=== PATIENT | male | born 1975 | race Two or more races ===

== ENCOUNTER 2017-06-03 01:18 | Emergency (ER) ==
[2017-06-03 01:30] VITALS: BP 129/85; TEMP 98.7; BMI 24.5
--- NOTE | 2017-06-03 02:05 | ED.PDOC ---
General ED Provider: Dr. ALBERTO CORRIGAN Chief Complaint: Chest Wall Injury/Pain Stated Complaint: Patient is a 42 year old female who comes to the ER with chest wall pain. He reports that he slipped on ice 3 days ago, was carrying a large lorene that landed on the left side of his chest. Since then he has pain to left chest and rib area. Pain is worse with cough, breathing, or move Time Seen by Physician: 02:02 Mode of Arrival: Walk-In Information Source: Patient Exam Limitations: No limitations Seen Within Last 72 Hours for Same Complaint By: ED Nursing and Triage Documentation Reviewed and Agree: Yes Reviewed sepsis parameters & appropriate labs ordered?: No System Inflammatory Response Syndrome: Not Applicable Sepsis Protocol: For patient's 13 years and over: Temp is 96.8 and below OR 101 and greater Pulse >90 BPM Resp >20/minute Acutely Altered Mental Status Are patient's symptoms suggestive of a new infection, such as: -Pneumonia -Skin, Soft Tissue -Endocarditis -UTI -Bone, Joint Infection -Implantable Device -Acute Abdominal Infection -Wound Infection -Meningitis -Blood Stream Catheter Infection -Unknown System Inflammatory Response Syndrome: Not Applicable Musculoskeletal Complaint Exam - Back Pain Complaint/Exam Mechanism of Injury: Reports: No known trauma Onset/Duration: 3 days Symptoms Are: Still present Timing: Constant Initial Severity: Moderate Current Severity: Severe Location: Reports: Discrete Character: Reports: Aching, Throbbing Aggravating: Reports: Movements, Bending, Cough Alleviating: Reports: None Associated Signs and Symptoms: Denies: Swelling, Redness, Bruising, Fever, Weakness, Numbness, Tingling, Abdominal pain, Flank pain, Bladder incontinence, Bowel incontinence, Weight loss, Pain with weight bearing TAD Risk Factors: Reports: None AAA Risk Factors: Reports: None Cauda Equina Risk Factors: Reports: None Epidural Abcess Risk Factors: Reports: None Related Surgical History: Reports: None Focal Tenderness: Yes (Left lateral chest wall ) Paraspinal Muscle Tenderness: No Paraspinal Muscle Spasm: No Scoliosis: No Lordosis: No Kyphosis: No SLR Test: Right Negative, Left Negative Hip Motion Testing Pain: Right Negative, Left Negative Focal Weakness: Present: None Focal Sensory Loss: Present: None Gait: Present: Normal Back Picture: 1 - Tenderness to palpation 2 - Tenderness Differential Diagnoses: Fracture, Strain, Sprain Review of Systems - Review Of Systems Constitutional: Reports: No symptoms Eyes: Reports: No symptoms Ears, Nose, Mouth, Throat: Reports: No symptoms Respiratory: Reports: No symptoms Cardiac: Reports: Chest pain (left lateal ) GI: Reports: No symptoms : Reports: No symptoms Musculoskeletal: Reports: No symptoms Skin: Reports: No symptoms Neurological: Reports: Anxiety Endocrine: Reports: No symptoms Hematologic/Lymphatic: Reports: No symptoms All Other Systems: Reviewed and Negative Past Medical History - Past Medical History Previously Healthy: Yes Endocrine: Reports: None Cardiovascular: Reports: None Respiratory: Reports: None Hematological: Reports: None Gastrointestinal: Reports: None Genitourinary: Reports: None Neuro/Psych: Reports: None Musculoskeletal: Reports: None Cancer: Reports: None - Surgical History General Surgical History: Reports: None - Family History Family History: Reports: None - Social History Smoking Status: Never smoker Hx Substance Use: No Alcohol Screening: None - Immunizations Tetanus Shot up to Date: No Physical Exam - Physical Exam Appearance: Ill-appearing Ill-appearing: Mild Pain Distress: Severe Neck: Supple Respiratory: Airway patent, Breath sounds clear, Breath sounds equal, Respirations nonlabored Cardiovascular: RRR, Pulses normal, No rub, No murmur Musculoskeletal: Normal strength, ROM intact, No edema, No calf tenderness Skin: Warm, Dry Neurological: Sensation intact, Alert, Oriented Psychiatric: Anxious Interpretation - Radiology Interpretation Radiology Interpretation By: ED Physician Radiology Results: Positive Exam Interpreted: CXR (5th rib Fracture with mild displacement. ) Critical Care Note - Critical Care Note Total Time (mins): 0 Course - Course Orders, Labs, Meds: Orders Category Date Time Status Ed After Hour Supply Med [Ed After Hours Supply Med MEDS 06/03/17 02:06 Discontinued Sent Home] 1 each PO ONCE ONE Hydrocodone Bit/Acetaminophen [[place] 5-325] MEDS 06/03/17 02:14 Discontinued 2 tab .ROUTE .STK-MED ONE Ketorolac Tromethamine [Toradol] MEDS 06/03/17 02:06 Discontinued 60 mg IM ONCE STA RIBS, W/PA CHEST LEFT Stat RADS 06/03/17 01:59 Completed Medications Discontinued Medications Generic Name Dose Route Start Last Admin Trade Name Freq PRN Reason Stop Dose Admin Ketorolac Tromethamine 60 mg 06/03/17 02:06 06/03/17 02:26 Toradol IM 06/03/17 02:07 60 mg ONCE STA Administration Miscellaneous Information 1 each 06/03/17 02:06 Ed After Hours Supply Med Sent Home PO 06/03/17 02:07 ONCE ONE Protocol Vital Signs: Temp Pulse Resp BP Pulse Ox 06/03/17 01:20 98.7 F 89 18 129/85 98 Departure - Departure Time of Disposition: 02:15 Disposition: HOME SELF-CARE Discharge Problem: Chest wall pain, Chest injury Closed rib fracture Qualifiers: Encounter type: initial encounter Rib fracture type: single rib Laterality: left Qualified Code(s): S22.32XA - Fracture of one rib, left side, initial encounter for closed fracture Instructions: Rib Fracture (ED), Chest Wall Pain (ED) Condition: Fair Pt referred to PMD for follow-up: Yes IPMP verified?: No Additional Instructions: Take Medications as prescribed Follow up with PCP in 3 dsyas . Prescriptions: Hydrocodone/Acetaminophen [[place] 5-325 Tablet] 1 tab PO Q6HR PRN #12 tablet PRN Reason: PAIN Ibuprofen [Motrin] 600 mg PO Q6H PRN #30 tablet PRN Reason: Analgesia Allergies/Adverse Reactions: Allergies No Known Allergies Allergy (Verified 06/03/17 01:31) Home Medications: Ambulatory Orders Hydrocodone/Acetaminophen [[place] 5-325 Tablet] 1 tab PO Q6HR PRN #12 tablet Ibuprofen [Motrin] 600 mg PO Q6H PRN #30 tablet 06/03/17 Disposition Discussed With: Patient
[2017-06-03] MEDS ORDERED: TORADOL IM STA (02:06)
[2017-06-03] MEDS ORDERED: ED AFTER HOURS SUPPLY MED SENT HOME PO ONE (02:06)
[2017-06-03] MEDS ORDERED: NORCO 5-325 ONE (02:14)
--- NOTE | 2017-06-03 03:07 | DI ---
EXAM: PA chest and left rib series. HISTORY: Trauma. FINDINGS: There is a displaced fracture of the left lateral fifth rib. The cardiac silhouette and pu lmonary vasculature are within normal limits. The costophrenic angles are clear. No infiltrate or c onsolidation. No pneumothorax. Impression: Displaced fracture of the left lateral fifth rib.
== END 2017-06-03 02:50 | disposition home or self-care (01) ==
LOC: ED 01:18
DX: S22.32XA Fracture of one rib, left side, initial encounter for closed fracture (principal); W00.0XXA Fall on same level due to ice and snow, initial encounter
CPT/HCPCS: 99282

== ENCOUNTER 2024-10-02 22:44 | Observation (INO) ==
--- NOTE | 2024-10-02 23:21 | ED.PDOC ---
General [facility] ED Provider: Dr. ABBIE ARZOLA DO Chief Complaint: Respiratory Complaint Stated Complaint: 49-year-old male mostly Nepalese-speaking presenting with complaints of cough. Patient reports to me that he has had cough ongoing since 3:00 today. He states that he had cough that was dry and now caused him to vomit. He is present with his daughter. 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 He reports taking Tylenol at 4:00. No other medications. Blood sugar upon arrival was measured at 300. Patient does have documented hemoglobin A1c of greater than 12 over 2 years ago. He reports that he has not followed up with any doctor since then. He does state mild tinnitus of his left ear. Denies any sick contacts. Denies abdominal pain diarrhea or constipation Time Seen by Provider: 10/02/24 23:06 Information Source: Patient and Family Nursing and Triage Documentation Reviewed and Agree: Yes Opioid Naive vs. Tolerant What is Opioid Naive?: *Opioid Naive implies the patient is not already taking opioids or not chronically receiving opioids on a daily basis. *PRN dosing is not "usually" associated with tolerance. *Patients are at higher risk of over-sedation and aspiration. What is Opioid Tolerant?: *Opioid Tolerance implies less than the expected response to an opioid. *Acquired tolerance is defined by the patient taking 60mg of oral morphine daily (or equianalgesic dose of another opioid) for 1 week or more. *Often associated with chronic pain. *May take more than usual dose to achieve desired pain control. Cardiovascular Complaint Exam Chest Pain Complaint/Exam Differential Diagnoses: Pulmonary Edema, Lower Resp. Infection and Pulmonary Embolism Review of Systems Review Of Systems Constitutional: Reports Fever Ears, Nose, Mouth, Throat: Denies Ear discharge Respiratory: Reports Cough Cardiac: Reports Chest pain GI: Reports Vomiting; Denies Abdomen distended : Denies Burning Musculoskeletal: Denies Back pain Skin: Denies Bruising Neurological: Denies Headache [facility] Social History Smoking and tobacco status: Never smoker Passive smoking exposure: No Alcohol intake: never Substance use type: does not use Physical Exam Physical Exam Appearance: Reports Well-nourished Eyes: Reports ANDRES, EOMI and Conjunctiva clear ENT: Reports Ears normal, Nose normal and Oropharynx normal Neck: Supple Respiratory: Reports Airway patent, Breath sounds clear and Other (Dry cough); Denies Retractions Cardiovascular: Reports RRR and Pulses normal GI/: Reports Soft, Nontender and Bowel sounds normal Musculoskeletal: Reports Normal strength and No edema Skin: Reports Warm and Dry Neurological: Reports Sensation intact, Motor intact, Alert and Oriented Psychiatric: Reports Affect appropriate Interpretation EKG Interpretation EKG Interpretation By: ED Physician Time of EKG #1: 23:31 Rate: Normal Rhythm: Sinus Ectopy: None [place]: NL ST Segment: Normal Interpretation: No ischemic change QTc 427 Physician Progress Note Physician Progress Note: Patient is a 49-year-old male presenting for history of present illness above. Patient does have dry cough. Will send for flu COVID. Initial blood sugar was 300 upon arrival. Patient has known history of diabetes untreated. Will send new hemoglobin A1c. Will provide liter fluid. Labs will be obtained. In regards to his cough this is dry in nature and lungs appear clear. He is PERC negative. Patient became tachycardic after breathing treatment. He did have 1 episode of emesis here in the emergency department. Chest x-ray was positive for pneumonia. Started on antibiotics. Will bring in for observation given his vomiting and uncontrolled blood sugars. Has urine does show ketones as well as a decreased bicarbonate however his pH is normal. Will provide 2 L of fluid before giving any insulin. Blood sugar decreased after first liter to 259. No abdominal pain or discomfort on evaluation to suggest GI involvement or need for CT scan. Case discussed with hospitalist service in agreement to place patient in observation. Course Course 10/02/24 23:25 10/02/24 23:25 Orders, Labs, Meds: Lab Review 10/02/24 10/02/24 10/02/24 23:00 23:25 23:35 WBC 9.08 RBC 4.58 L Hgb 13.6 L Hct 39.8 L MCV 86.9 MCH 29.7 MCHC 34.2 RDW Coeff of Tanvir 11.9 Plt Count 210 Immature Gran % (Auto) 0.2 Neut % (Auto) 78.2 H Lymph % (Auto) 10.5 Irwin % (Auto) 9.7 Eos % (Auto) 1.1 Baso % (Auto) 0.3 Neut # (Auto) 7.1 H Lymph # (Auto) 1.0 Irwin # (Auto) 0.9 Eos # (Auto) 0.1 Baso # (Auto) 0.0 Immature Gran # (Auto) 0.0 VBG pH VBG pCO2 VBG pO2 VBG HCO3 VBG O2 Saturation Sodium 135.0 Potassium 3.82 Chloride 101.7 Carbon Dioxide 20.0 L Anion Gap 17.12 BUN 18.7 Creatinine 0.51 L Estimated GFR (MDRD) 173.00 BUN/Creatinine Ratio 36.66 Glucose 341.6 H Hemoglobin A1c 11.05 H Lactic Acid 1.57 Calcium 8.79 Magnesium 1.77 Total Bilirubin 0.65 AST 37.1 ALT 28.1 Alkaline Phosphatase 126.9 H Troponin I < 0.012 NT-Pro-B Natriuret Pep 37 Total Protein 7.39 Albumin 4.04 Globulin 3.35 Albumin/Globulin Ratio 1.20 Lipase 34.7 Urine Color Yellow Urine Clarity Clear Urine pH 6.0 Ur Specific [place] 1.010 Urine Protein Negative Urine Glucose (UA) 3+ H Urine Ketones 2+ H Urine Blood 1+ H Urine Nitrite Negative Urine Bilirubin Negative Urine Urobilinogen 4.0 H Ur Leukocyte Esterase Negative Urine Microscopic RBC 5-10 Ur Squamous Epith Cells Not present Influ A Molecular Assay Negative by naat Influ B Molecular Assay Negative by naat SARS CoV-2 RNA Rapid JOSELIN Negative 10/02/24 23:58 WBC RBC Hgb Hct MCV MCH MCHC RDW Coeff of Tanvir Plt Count Immature Gran % (Auto) Neut % (Auto) Lymph % (Auto) Irwin % (Auto) Eos % (Auto) Baso % (Auto) Neut # (Auto) Lymph # (Auto) Irwin # (Auto) Eos # (Auto) Baso # (Auto) Immature Gran # (Auto) VBG pH 7.39 VBG pCO2 38 L VBG pO2 42 VBG HCO3 21.8 L VBG O2 Saturation 78.9 Sodium Potassium Chloride Carbon Dioxide Anion Gap BUN Creatinine Estimated GFR (MDRD) BUN/Creatinine Ratio Glucose Hemoglobin A1c Lactic Acid Calcium Magnesium Total Bilirubin AST ALT Alkaline Phosphatase Troponin I NT-Pro-B Natriuret Pep Total Protein Albumin Globulin Albumin/Globulin Ratio Lipase Urine Color Urine Clarity Urine pH Ur Specific [place] Urine Protein Urine Glucose (UA) Urine Ketones Urine Blood Urine Nitrite Urine Bilirubin Urine Urobilinogen Ur Leukocyte Esterase Urine Microscopic RBC Ur Squamous Epith Cells Influ A Molecular Assay Influ B Molecular Assay SARS CoV-2 RNA Rapid JOSELIN Orders Category Date Time Status PL[facility] 10/03/24 01:06 Active ) EKG-(ED ONLY) Stat CARDIO 10/02/24 23:19 Completed NEBULIZER TREATMENT Stat CARDIO 10/02/24 23:22 Completed BLOOD GLUCOSE MONITORING (MED/SURG) Q4HR CARE 10/03/24 01:06 Active BLOOD GLUCOSE MONITORING ONCE CARE 10/02/24 23:34 Active TELEMETRY MONITORING TELE CARE 10/03/24 01:06 Active VITAL SIGNS Q4HR CARE 10/03/24 01:06 Active REGULAR DIET DIETARY 10/03/24 Breakfast Ordered ED APPLY O2 .ONCE EMERGENCY 10/02/24 23:19 Active ED KNEE BOLTER APPLIED .ONCE EMERGENCY 10/02/24 23:19 Active CBC W/ AUTO DIFF Stat LAB 10/02/24 23:25 Completed CBC W/ AUTO DIFF Timed LAB 10/03/24 06:00 Ordered COMPREHENSIVE METABOLIC PANEL Stat LAB 10/02/24 23:25 Completed COMPREHENSIVE METABOLIC PANEL Timed LAB 10/03/24 06:00 Ordered COVID [SARS COV-2 RNA RAPID JOSELIN] Stat LAB 10/03/24 Uncollected FLU A/B MOLECULAR Stat LAB 10/02/24 23:00 Completed HEMOGLOBIN A1C Stat LAB 10/02/24 23:25 Completed LACTIC ACID Stat LAB 10/02/24 23:25 Completed LIPASE Stat LAB 10/03/24 00:04 Completed MAGNESIUM Stat LAB 10/02/24 23:35 Completed NT-PROBNP(ED) Stat LAB 10/02/24 23:25 Completed SARS COV-2 RNA RAPID JOSELIN Stat LAB 10/02/24 23:00 Completed TROPONIN I Stat LAB 10/02/24 23:25 Completed URINALYSIS C & S IF INDICATED Stat LAB 10/02/24 23:00 Completed VENOUS BLOOD GAS Stat LAB 10/02/24 23:58 Completed Acetaminophen [Tylenol] Meds 10/03/24 01:06 Active 650 mg PO Q4H PRN Azithromycin [Zithromax] Meds 10/03/24 00:52 Discontinued 500 mg PO ONCE ONE Ceftriaxone 1 gm Vial [Rocephin 1 gm Vial] Meds 10/03/24 00:50 Discontinued 1 gm IVP ONCE ONE Ipratropium/Albuterol Neb [Duoneb] Meds 10/02/24 23:22 Discontinued 3 ml NEB ONCE STA Ondansetron HCl/Pf [Zofran Sdv] Meds 10/03/24 00:54 Discontinued 4 mg IVP ONCE STA Sodium Chloride 0.9% [Sodium Chloride] 1,000 ml Meds 10/02/24 23:22 Discontinued IV BOLUS Sodium Chloride 0.9% [Sodium Chloride] 1,000 ml Meds 10/03/24 00:26 Discontinued IV BOLUS RESUSCITATION STATUS Routine OTHERS 10/03/24 01:06 Ordered CHEST, 2 VIEWS PA & LAT Stat RADS 10/02/24 23:19 Completed Medications Generic Name Dose Route Start Last Admin Trade Name Freq PRN Reason Stop Dose Admin Acetaminophen 650 mg 10/03/24 01:06 10/03/24 01:19 Acetaminophen 325 Mg Tablet PO 650 mg Q4H PRN Administration Mild Pain Discontinued Medications Generic Name Dose Route Start Last Admin Trade Name Freq PRN Reason Stop Dose Admin Albuterol/Ipratropium 3 ml 10/02/24 23:22 10/02/24 23:45 Ipratropium/Albuterol Vial.Neb NEB 10/02/24 23:23 3 ml ONCE STA Administration Azithromycin 500 mg 10/03/24 00:52 10/03/24 00:59 Azithromycin 250 Mg Tablet PO 10/03/24 00:53 500 mg ONCE ONE Administration Ceftriaxone Sodium 1 gm 10/03/24 00:50 10/03/24 00:59 Ceftriaxone 1 Gm Vial IVP 10/03/24 00:51 1 gm ONCE ONE Administration Sodium Chloride 1,000 mls @ 1,000 mls/hr 10/02/24 23:22 10/03/24 00:28 Sodium Chloride IV 10/03/24 00:21 Infused BOLUS ONE Infusion Sodium Chloride 1,000 mls @ 1,000 mls/hr 10/03/24 00:26 10/03/24 01:27 Sodium Chloride IV 10/03/24 01:25 Infused BOLUS ONE Infusion Ondansetron HCl 4 mg 10/03/24 00:54 10/03/24 00:59 Ondansetron Hcl/Pf 4 Mg/2 Ml Sdv IVP 10/03/24 00:55 4 mg ONCE STA Administration EXAM: FRONTAL AND LATERAL VIEWS OF THE CHEST. HISTORY: Cough. COMPARISON: Chest radiograph 06/03/2017. FINDINGS: Normal heart size. Subtle groundglass opacities in the left mid to lower lung. No pleural effusion or pneumothorax. No acute osseous abnormality. IMPRESSION: Subtle infiltrates in the left lung concerning for pneumonia. Electronically Signed By: Brien Farnsworth M.D. Signing Date: 2024-10-03 00:39 Vital Signs: Temp Pulse Resp BP Pulse Ox O2 Flow Rate 10/02/24 23:47 2 10/02/24 22:46 98.7 F 99 26 H 140/86 99 JESSIKA Risk Score JESSIKA Risk Score: Risk Score Odds of by 30D 0 0.1 (0.1-0.2) 1 0.3 (0.2-0.3) 2 0.4 (0.3-0.5) 3 0.7 (0.6-0.9) 4 1.2 (1.0-1.5) 5 2.2 (1.9-2.6) 6 3.0 (2.5-3.6) 7 4.8 (3.8-6.1) Discharge Plan Discharge Patient Disposition: PLACED OBSERVATION Discharge Problem: Pneumonia, Diabetes mellitus due to underlying condition, uncontrolled, with hyperglycemia, Vomiting Did you review [place] [employer] for ALL controlled substances?: Not Applicable ED Provider: ABBIE ARZOLA Condition: Stable
[2024-10-02] MEDS: SODIUM CHLORIDE 1,000 ML IV ONE (23:26)
[2024-10-02 23:30] LABS: BASOPHILS % (AUTO) 0.3 % (0.0-3.0); EOSINOPHILS # (AUTO) 0.1 K/ul (0.0-0.7); EOSINOPHILS % (AUTO) 1.1 % (0.0-7.0); HEMATOCRIT 39.8 % (42.0-52.0); HEMOGLOBIN 13.6 g/dl (14.0-18.0); IMMATURE GRANULOCYTE % (AUTO) 0.2 % (0.0-5.0); LYMPHOCYTES % (AUTO) 10.5 (10.0-50.0); MEAN CORPUSCULAR HEMOGLOBIN 29.7 pg (27.0-31.0); MEAN CORPUSCULAR HGB CONC 34.2 (31.8-35.4); MEAN CORPUSCULAR VOLUME 86.9 fl (80.0-94.0); MONOCYTES # (AUTO) 0.9 K/uL (0.4-2.0); MONOCYTES % (AUTO) 9.7 (0-10); NEUTROPHILS # (AUTO) 7.1 K/ul (2.0-6.9); NEUTROPHILS % (AUTO) 78.2 % (42.2-75.2); PLATELET COUNT 210 10^3/uL (140-440); RDW COEFFICIENT OF VARIATION 11.9 % (11.6-14.8); RED BLOOD COUNT 4.58 10^6/ul (4.70-6.10); WHITE BLOOD COUNT 9.08 K/ul (4.2-10.2)
[2024-10-02 23:33] LABS: BILIRUBIN,URINE Negative (NEGATIVE); CLARITY,URINE Clear (CLEAR); COLOR,URINE Yellow (YELLOW); KETONES,URINE 2+ (NEGATIVE); LEUKOCYTE ESTERASE ,URINE Negative (NEGATIVE); NITRITE,URINE Negative (NEGATIVE); PROTEIN,URINE Negative (NEGATIVE); URINE, BLOOD 1+ (NEGATIVE)
[2024-10-02 23:39] LABS: GLUCOSE, URINE (UA) 3+ (NEGATIVE); SQUAMOUS EPITHELIAL CELL,UR NOT PRESENT (0-5)
[2024-10-02 23:43] LABS: ALANINE AMINOTRANSFERASE 28.1 U/L (0-50); ALBUMIN 4.04 g/dL (3.5-5.0); ALKALINE PHOSPHATASE 126.9 U/L (38-126); ASPARTATE AMINO TRANSFERASE 37.1 U/L (17-59); BILIRUBIN,TOTAL 0.65 mg/dL (0.2-1.3); BLOOD UREA NITROGEN 18.7 mg/dL (9-20); CALCIUM 8.79 mg/dL (8.4-10.2); CHLORIDE 101.7 mmol/L (98-107); CREATININE 0.51 mg/dL (0.60-1.10); GLUCOSE 341.6 mg/dL (74-106); POTASSIUM 3.82 mmol/L (3.5-5.1); TOTAL PROTEIN 7.39 g/dL (6.3-8.2)
[2024-10-02] MEDS: DUONEB NEB STA (23:45)
[2024-10-02 23:47] LABS: MOLECULAR FLU A NEGATIVE BY NAAT (NEGATIVE); MOLECULAR FLU B NEGATIVE BY NAAT (NEGATIVE); SARS COV-2 RNA RAPID NAAT NEGATIVE (NEGATIVE)
[2024-10-02 23:59] LABS: TROPONIN I < 0.012 ng/ml (0.0000-0.120)
[2024-10-03 00:16] LABS: VBG HCO3 21.8 (22-26); VBG PH 7.39 (7.30-7.40)
[2024-10-03 00:17] LABS: VBG OXYGEN SATURATION 78.9 (60-80)
[2024-10-03] MEDS: SODIUM CHLORIDE 1,000 ML IV ONE (00:34)
--- NOTE | 2024-10-03 00:43 | DI ---
EXAM: FRONTAL AND LATERAL VIEWS OF THE CHEST. HISTORY: Cough. COMPARISON: Chest radiograph 06/03/2017. FINDINGS: Normal heart size. Subtle groundglass opacities in the left mid to lower lung. No pleural effusion or pneumothorax. No acute osseous abnormality. IMPRESSION: Subtle infiltrates in the left lung concerning for pneumonia.
[2024-10-03] MEDS: ROCEPHIN 1 GM VIAL IVP ONE (00:59)
[2024-10-03] MEDS: ZITHROMAX PO ONE (00:59)
[2024-10-03] MEDS: ZOFRAN SDV IVP STA (00:59)
[2024-10-03] MEDS: TYLENOL PO PRN (01:19)
[2024-10-03 03:12] VITALS: BMI 25.0
[2024-10-03] MEDS ORDERED: REGLAN IVP PRN (03:41)
[2024-10-03] MEDS: ZOFRAN SDV IVP PRN (03:50)
[2024-10-03] MEDS: HUMULIN R (10ML) SUBCUT PRN (04:05)
[2024-10-03 05:59] LABS: BASOPHILS % (AUTO) 0.2 % (0.0-3.0); EOSINOPHILS % (AUTO) 0.2 % (0.0-7.0); HEMATOCRIT 36.1 % (42.0-52.0); HEMOGLOBIN 12.3 g/dl (14.0-18.0); IMMATURE GRANULOCYTE % (AUTO) 0.2 % (0.0-5.0); LYMPHOCYTES % (AUTO) 9.9 (10.0-50.0); MEAN CORPUSCULAR HEMOGLOBIN 29.9 pg (27.0-31.0); MEAN CORPUSCULAR HGB CONC 34.1 (31.8-35.4); MEAN CORPUSCULAR VOLUME 87.6 fl (80.0-94.0); MONOCYTES # (AUTO) 0.7 K/uL (0.4-2.0); MONOCYTES % (AUTO) 6.5 (0-10); NEUTROPHILS # (AUTO) 8.3 K/ul (2.0-6.9); PLATELET COUNT 211 10^3/uL (140-440); RDW COEFFICIENT OF VARIATION 11.9 % (11.6-14.8); RED BLOOD COUNT 4.12 10^6/ul (4.70-6.10); WHITE BLOOD COUNT 10.04 K/ul (4.2-10.2)
[2024-10-03 06:10] LABS: ALANINE AMINOTRANSFERASE 25.7 U/L (0-50); ALBUMIN 3.54 g/dL (3.5-5.0); ALKALINE PHOSPHATASE 97.7 U/L (38-126); ASPARTATE AMINO TRANSFERASE 30.4 U/L (17-59); BILIRUBIN,TOTAL 0.57 mg/dL (0.2-1.3); BLOOD UREA NITROGEN 14.9 mg/dL (9-20); CALCIUM 8.14 mg/dL (8.4-10.2); CARBON DIOXIDE 18.5 mmol/L (22-30.0); CHLORIDE 104.9 mmol/L (98-107); CREATININE 0.47 mg/dL (0.60-1.10); GLUCOSE 284.4 mg/dL (74-106); POTASSIUM 3.7 mmol/L (3.5-5.1); SODIUM 136.5 mmol/L (134.5-145); TOTAL PROTEIN 6.61 g/dL (6.3-8.2)
[2024-10-03 08:48] LABS: ALANINE AMINOTRANSFERASE 25.1 U/L (0-50); ALBUMIN 3.51 g/dL (3.5-5.0); ALKALINE PHOSPHATASE 93.1 U/L (38-126); ASPARTATE AMINO TRANSFERASE 31.3 U/L (17-59); BILIRUBIN,TOTAL 0.52 mg/dL (0.2-1.3); CALCIUM 8.27 mg/dL (8.4-10.2); CARBON DIOXIDE 20.8 mmol/L (22-30.0); CHLORIDE 105.2 mmol/L (98-107); CHOLESTEROL 165.6 mg/dL (0-200); CREATININE 0.48 mg/dL (0.60-1.10); GLUCOSE 212.6 mg/dL (74-106); HDL CHOLESTEROL 31.8 mg/dL (35-60); POTASSIUM 3.62 mmol/L (3.5-5.1); SODIUM 137.7 mmol/L (134.5-145); TOTAL PROTEIN 6.61 g/dL (6.3-8.2); TRIGLYCERIDES 89.7 mg/dL (0-150)
[2024-10-03] MEDS: PEPCID IVP SCH (09:21)
[2024-10-03] MEDS: PROTONIX IVP SCH (09:21)
[2024-10-03] MEDS ORDERED: TESSALON PERLES PO PRN (10:39)
--- NOTE | 2024-10-03 14:08 | PCM ---
Date of Service Date Seen by Provider: 10/03/24 Time Seen by Provider: 08:30 Admit Day/Time Admission Date: 10/03/24 Admission Time: 01:06 Reason for Admission Chief Complaint: RESPIRATORY COMPLAINT, DIZZY, WEAK Hospital Provider Hospital Provider: Ashlee Gr PA-C, [facility] History of Present Illness History of Present Illness: Patient is a 49-year-old male with past medical history of uncontrolled diabetes who presents to the ER with cough, fever, overall not feeling well. In the ER he was found to have a left lung pneumonia. He also started vomiting while in the ER. He was also noted to have a glucose in the 500s and A1c was added on and it was 11. Patient was given Rocephin and azithromycin and admitted to [facility]. Spoke extensively with the patient and his at the bedside today with a liquor clerk using [employer]. He states he feels somewhat better from a pneumonia standpoint. However during conversation he started having a coughing fit to the point that he threw up. He states he had only felt bad for couple days. He is on room air. He appears clammy and diaphoretic. Regarding his diabetes he states that he was told he was diabetic in 2020. He was started on metformin but he did not like the way it made him feel, and he only took it for couple days. His has concerns about his sugars running so high. When asked what he eats at home he states "everything". We discussed how high his sugars been running with his A1c being 11. He currently does not have any insurance and is self-pay. Therefore he does not have any PCP and it costs $150 to be seen in the clinic which they cannot afford at this time. He has a lot of social barriers to his access to health care at this time. Case Discussed With Case Discussed With: Patient's case was discussed with the ER Physicians, Dr. Simon. [facility] Social History Smoking and tobacco status: Never smoker Passive smoking exposure: No Alcohol intake: never Substance use type: does not use Allergies Allergies Allergy/AdvReac Type Severity Reaction Status Date / Time No Known Allergies Allergy Verified 10/02/24 23:02 Current Medications Home Medications Acetaminophen (Acetaminophen 325 Mg Tablet) 650 mg PO Q4H PRN PRN Reason: Mild Pain Last Admin: 10/03/24 10:34 Dose: 650 mg Azithromycin (Azithromycin 250 Mg Tablet) 500 mg PO BEDTIME [facility] Stop: 10/04/24 22:59 Benzonatate (Benzonatate 100 Mg Capsule) 100 mg PO TID PRN PRN Reason: Cough Famotidine (Famotidine Inj 20 Mg/2 Ml Vial) 20 mg IVP Q12HR [facility] Last Admin: 10/03/24 09:21 Dose: 20 mg Guaifenesin/Dextromethorphan (Guaifenesin/Dextromethorphan 200/20 Mg/10 Ml Cup) 10 ml PO Q6HR PRN PRN Reason: Cough CEFTRIAXONE/D5W 1 GM PREMIX (Rocephin 1 Gm/50 Ml D5w) 1 gm in 50 mls @ 100 mls/ hr IV BEDTIME PAULINE Stop: 10/06/24 20:59 Insulin Human Regular (Insulin Regular, Human 100 Unit/Ml (10ml) Vial) 0 unit SUBCUT PRN PRN; Protocol PRN Reason: Hyperglycemia Last Admin: 10/03/24 12:07 Dose: 2 unit Metoclopramide HCl (Metoclopramide Hcl 10 Mg/2 Ml) 5 mg IVP Q6HR PRN PRN Reason: Nausea / Vomiting Ondansetron HCl (Ondansetron Hcl/Pf 4 Mg/2 Ml Sdv) 4 mg IVP Q6H PRN PRN Reason: Nausea / Vomiting Last Admin: 10/03/24 03:50 Dose: 4 mg Pantoprazole Sodium (Pantoprazole Sodium 40 Mg Vial) 40 mg IVP DAILY [facility] Last Admin: 10/03/24 09:21 Dose: 40 mg indomethacin 50 mg capsule 50 mg PO TID #21 caps 11/14/21 [Rx Confirmed 10/02/24] metformin 500 mg tablet 1,000 mg (2 x 500 mg) PO BID #60 tabs 11/22/21 [Rx Confirmed 10/02/24] Opioid Naive vs. Tolerant Does Patient Take Opioids?: No Is Patient Opioid Naive?: Yes What is Opioid Naive?: *Opioid Naive implies the patient is not already taking opioids or not chronically receiving opioids on a daily basis. *PRN dosing is not "usually" associated with tolerance. *Patients are at higher risk of over-sedation and aspiration. Is Patient Opioid Tolerant?: No What is Opioid Tolerant?: *Opioid Tolerance implies less than the expected response to an opioid. *Acquired tolerance is defined by the patient taking 60mg of oral morphine daily (or equianalgesic dose of another opioid) for 1 week or more. *Often associated with chronic pain. *May take more than usual dose to achieve desired pain control. Review of Systems Constitutional: Reports Fever, Fatigue and Loss of appetite Head: Reports Normocephalic and Atraumatic Cardiovascular: Denies Chest pain Respiratory: Reports Cough and Shortness of air Gastrointestinal: Reports Nausea and Vomiting; Denies Diarrhea, Abdominal pain or Melena Neurological: Reports Headache; Denies Dizziness Physical examination Most Recent Vital Signs: Most Recent Vital Signs Temperature 98.7 F 10/03/24 10:00 Temperature Source Temporal Artery Scan 10/03/24 10:00 Temperature Source Infrared 10/02/24 22:46 Pulse Rate 90 10/03/24 10:00 Respiratory Rate 20 10/03/24 10:00 Blood Pressure 124/81 10/03/24 10:00 Blood Pressure Mean 95 10/03/24 10:00 Blood Pressure Left Arm 136/84 10/03/24 01:56 Blood Pressure Location Left Arm 10/03/24 10:00 Blood Pressure Position Supine 10/03/24 10:00 O2 Sat by Pulse Oximetry 96 10/03/24 10:00 Oxygen Delivery Method Room Air 10/03/24 13:00 Oxygen Flow Rate 2 10/02/24 23:47 Height 5 ft 5 in 10/03/24 01:56 Weight 68.2 kg 10/03/24 01:56 Telemetry Type Remote Telemetry 10/03/24 13:00 Telemetry Monitoring Continues 10/03/24 13:00 Telemetry Heart Rate 80 10/03/24 13:00 Telemetry SPO2 98 10/03/24 13:00 EKG VT Interval 0.16 10/03/24 13:00 EKG QRS Interval 0.10 10/03/24 13:00 Telemetry Strip Reading SR 10/03/24 13:00 Appearance: Positive No Apparent Distress, Alert and Oriented x3 and Ill- Appearing Skin: Positive [place], Warm and Good Turgor HEENT: Positive Normocephalic and Atraumatic Neck: Positive Supple and Midline Trachea Chest/Lungs: Positive Symmetrical With Equal Breath Sounds and Rhonci; Negative Wheezes Heart: Positive RRR GI/: Positive Soft, Nontender, Bowel Sounds Normal and No Distention Extremities: Negative Edema Neurological: Positive Cranial Nerves Intact, Alert, Oriented and Muscle Strength 5/5 in Upper and Lower Extremities Bilaterally Psychiatric: Positive Oriented x4, Appropriate Mood and Appropriate Affect Labs This Visit Labs This Visit: Labs This Visit 10/02/24 10/02/24 10/02/24 23:00 23:25 23:35 WBC 9.08 RBC 4.58 L Hgb 13.6 L Hct 39.8 L MCV 86.9 MCH 29.7 MCHC 34.2 RDW Coeff of Tanvir 11.9 Plt Count 210 Immature Gran % (Auto) 0.2 Neut % (Auto) 78.2 H Lymph % (Auto) 10.5 [place] % (Auto) 9.7 Eos % (Auto) 1.1 Baso % (Auto) 0.3 Neut # (Auto) 7.1 H Lymph # (Auto) 1.0 [place] # (Auto) 0.9 Eos # (Auto) 0.1 Baso # (Auto) 0.0 Immature Gran # (Auto) 0.0 VBG pH VBG pCO2 VBG pO2 VBG HCO3 VBG O2 Saturation Sodium 135.0 Potassium 3.82 Chloride 101.7 Carbon Dioxide 20.0 L Anion Gap 17.12 BUN 18.7 Creatinine 0.51 L Estimated GFR (MDRD) 173.00 BUN/Creatinine Ratio 36.66 Glucose 341.6 H Hemoglobin A1c 11.05 H Lactic Acid 1.57 Calcium 8.79 Magnesium 1.77 Total Bilirubin 0.65 AST 37.1 ALT 28.1 Alkaline Phosphatase 126.9 H Troponin I < 0.012 NT-Pro-B Natriuret Pep 37 Total Protein 7.39 Albumin 4.04 Globulin 3.35 Albumin/Globulin Ratio 1.20 Triglycerides Cholesterol LDL Cholesterol, Calc VLDL Cholesterol HDL Cholesterol Cholesterol/HDL Ratio Lipase 34.7 Urine Color Yellow Urine Clarity Clear Urine pH 6.0 Ur Specific [place] 1.010 Urine Protein Negative Urine Glucose (UA) 3+ H Urine Ketones 2+ H Urine Blood 1+ H Urine Nitrite Negative Urine Bilirubin Negative Urine Urobilinogen 4.0 H Ur Leukocyte Esterase Negative Urine Microscopic RBC 5-10 Ur Squamous Epith Cells Not present Influ A Molecular Assay Negative by naat Influ B Molecular Assay Negative by naat SARS CoV-2 RNA Rapid JOSELIN Negative 10/02/24 10/03/24 10/03/24 23:58 05:25 06:00 WBC 10.04 RBC 4.12 L Hgb 12.3 L Hct 36.1 L MCV 87.6 MCH 29.9 MCHC 34.1 RDW Coeff of Tanvir 11.9 Plt Count 211 Immature Gran % (Auto) 0.2 Neut % (Auto) 83.0 H Lymph % (Auto) 9.9 L [place] % (Auto) 6.5 Eos % (Auto) 0.2 Baso % (Auto) 0.2 Neut # (Auto) 8.3 H Lymph # (Auto) 1.0 [place] # (Auto) 0.7 Eos # (Auto) 0.0 Baso # (Auto) 0.0 Immature Gran # (Auto) 0.0 VBG pH 7.39 VBG pCO2 38 L VBG pO2 42 VBG HCO3 21.8 L VBG O2 Saturation 78.9 Sodium 136.5 Potassium 3.70 Chloride 104.9 Carbon Dioxide 18.5 L Anion Gap 16.80 BUN 14.9 Creatinine 0.47 L Estimated GFR (MDRD) 191.00 BUN/Creatinine Ratio 31.70 Glucose 284.4 H D Hemoglobin A1c Lactic Acid Calcium 8.14 L Magnesium Total Bilirubin 0.57 AST 30.4 ALT 25.7 Alkaline Phosphatase 97.7 D Troponin I NT-Pro-B Natriuret Pep Total Protein 6.61 Albumin 3.54 Globulin 3.07 Albumin/Globulin Ratio 1.15 Triglycerides Cholesterol LDL Cholesterol, Calc VLDL Cholesterol HDL Cholesterol Cholesterol/HDL Ratio Lipase Urine Color Urine Clarity Urine pH Ur Specific [place] Urine Protein Urine Glucose (UA) Urine Ketones Urine Blood Urine Nitrite Urine Bilirubin Urine Urobilinogen Ur Leukocyte Esterase Urine Microscopic RBC Ur Squamous Epith Cells Influ A Molecular Assay Influ B Molecular Assay SARS CoV-2 RNA Rapid JOSELIN 10/03/24 07:02 WBC RBC Hgb Hct MCV MCH MCHC RDW Coeff of Tanvir Plt Count Immature Gran % (Auto) Neut % (Auto) Lymph % (Auto) [place] % (Auto) Eos % (Auto) Baso % (Auto) Neut # (Auto) Lymph # (Auto) [place] # (Auto) Eos # (Auto) Baso # (Auto) Immature Gran # (Auto) VBG pH VBG pCO2 VBG pO2 VBG HCO3 VBG O2 Saturation Sodium 137.7 Potassium 3.62 Chloride 105.2 Carbon Dioxide 20.8 L Anion Gap 15.32 BUN 15.0 Creatinine 0.48 L Estimated GFR (MDRD) 186.00 BUN/Creatinine Ratio 31.25 Glucose 212.6 H D Hemoglobin A1c Lactic Acid Calcium 8.27 L Magnesium Total Bilirubin 0.52 AST 31.3 ALT 25.1 Alkaline Phosphatase 93.1 Troponin I NT-Pro-B Natriuret Pep Total Protein 6.61 Albumin 3.51 Globulin 3.10 Albumin/Globulin Ratio 1.13 Triglycerides 89.7 Cholesterol 165.6 LDL Cholesterol, Calc 116 VLDL Cholesterol 18 HDL Cholesterol 31.8 L Cholesterol/HDL Ratio 5.2 Lipase Urine Color Urine Clarity Urine pH Ur Specific [place] Urine Protein Urine Glucose (UA) Urine Ketones Urine Blood Urine Nitrite Urine Bilirubin Urine Urobilinogen Ur Leukocyte Esterase Urine Microscopic RBC Ur Squamous Epith Cells Influ A Molecular Assay Influ B Molecular Assay SARS CoV-2 RNA Rapid JOSELIN Imaging Imaging: EXAM: FRONTAL AND LATERAL VIEWS OF THE CHEST. HISTORY: Cough. COMPARISON: Chest radiograph 06/03/2017. FINDINGS: Normal heart size. Subtle groundglass opacities in the left mid to lower lung. No pleural effusion or pneumothorax. No acute osseous abnormality. IMPRESSION: Subtle infiltrates in the left lung concerning for pneumonia. Review Statement Review Statement: I have independently reviewed and interpreted the labs/EKGs/imaging that were ordered by the ER provider. I have reviewed all outside records that are available currently in our EMR including imaging/notes/labs from previous visits. Plan Plan: 1. Left sided pneumonia, CAP - Rocephin + azithromycin, tessalon pearles, robitussin prn. Zofran and reglan prn. 2. DMt2, uncontrolled - A1c 11. Drum Sander Offbearer consult. Humalog ss for now. Glucose improved to 200s. Will not yet add metformin due to his upset stomach. Pt has no insurance coverage. Will need cheapest options for glucose control. 3. Limited access to healthcare - impacting his ability to control diabetes, etc. Has no insurance currently. Will have medical billing and coding instructor meet with him and tomorrow to discuss options to control glucose at home. Will try to speak with 's PCP to see what options are available financially for him to be seen semi regularly for continuity of care. DVT Prophylaxis: Ambulation Time Spent: Greater than 80 minutes spent with patient, 50% of the time spent with this patient was devoted to counseling and coordination of care. Advanced Care Plannin minutes spent discussing advance care planning. Admit to: Obs Discussed Plan of Care with Dr. Sonny Frias. Medications Medication Orders: Medications Ordered Category Date Time Status Acetaminophen [Tylenol] Meds 10/03/24 01:06 Active 650 mg PO Q4H PRN Azithromycin [Zithromax] Meds 10/03/24 21:00 Active 500 mg PO BEDTIME Benzonatate [Tessalon Perles] Meds 10/03/24 10:39 Active 100 mg PO TID PRN Ceftriaxone/D5w 1 gm Premix [Rocephin 1 gm/50 ml D5w] Meds 10/03/24 21:00 Active 1 gm in 50 ml IV BEDTIME Famotidine Inj [Pepcid] Meds 10/03/24 09:00 Active 20 mg IVP Q12HR Guaifenesin/Dextromethorphan [Robitussin Dm Syrup] Meds 10/03/24 10:39 Active 10 ml PO Q6HR PRN Insulin Regular, Human [Humulin R (10Ml)] Meds 10/03/24 03:40 Active See Protocol SUBCUT PRN PRN Metoclopramide HCl [Reglan] Meds 10/03/24 03:41 Active 5 mg IVP Q6HR PRN Ondansetron HCl/Pf [Zofran Sdv] Meds 10/03/24 03:38 Active 4 mg IVP Q6H PRN Pantoprazole Sodium [Protonix] Meds 10/03/24 09:00 Active 40 mg IVP DAILY
[2024-10-03] MEDS: ZITHROMAX PO SCH (20:29)
[2024-10-03] MEDS: ROCEPHIN 1 GM/50 ML D5W 1 GM/50 ML BAG IV SCH (20:29)
[2024-10-04] MEDS: ROBITUSSIN DM SYRUP PO PRN (08:44)
[2024-10-04 09:50] VITALS: BP 134/86; PULSE 82; RESP 17; TEMP 97.9
--- NOTE | 2024-10-04 11:17 | DCSUM ---
Admission Date Admission Date: 10/02/24 Discharge Date Discharge Date: 10/04/24 Admission Diagnosis Admission Diagnosis: 1. Left sided pneumonia, CAP 2. DMt2, uncontrolled Discharge Diagnosis Discharge Diagnosis: 1. Left sided pneumonia, CAP 2. DMt2, uncontrolled - A1c 11. 3. Limited access to healthcare Hospital Provider Hospital Provider: Ashlee Gr PA-C, [facility] Summary of History and Physical Summary of History and Physical: Patient is a 49-year-old male with past medical history of uncontrolled diabetes who presents to the ER with cough, fever, overall not feeling well. In the ER he was found to have a left lung pneumonia. He also started vomiting while in the ER. He was also noted to have a glucose in the 500s and A1c was added on and it was 11. Patient was given Rocephin and azithromycin and admitted to [facility]. Spoke extensively with the patient and his at the bedside today with a ball machine operator using [employer]. He states he feels somewhat better from a pneumonia standpoint. However during conversation he started having a coughing fit to the point that he threw up. He states he had only felt bad for couple days. He is on room air. He appears clammy and diaphoretic. Regarding his diabetes he states that he was told he was diabetic in 2020. He was started on metformin but he did not like the way it made him feel, and he only took it for couple days. His has concerns about his sugars running so high. When asked what he eats at home he states "everything". We discussed how high his sugars been running with his A1c being 11. He currently does not have any insurance and is self-pay. Therefore he does not have any PCP and it costs $150 to be seen in the clinic which they cannot afford at this time. He has a lot of social barriers to his access to health care at this time. Hospital Course Subjective: Patient was treated with rocephin and azith for pneumonia. He improved clinically. Remained on RA. Labs and vitals stable. Will discharge on amoxicillin and remainder of azith. Regarding his diabetes, we had an in depth conversation about diabetes and his barriers to health care. Due to having no insurance and being smith pay only, will start with metformin only. He did not tolerate well in past and only took for two days, will start on low dose and titrate up. Supervisor Dog License Officer also spoke with patient and regarding options at home. We discussed if he is able to establish with [facility], he could potentially get another diabetic med affordable through the [employer]B program. We discussed that metformin will help lower his sugars but likely not enough to be controlled. We discussed the risks of fci uncontrolled diabetes. Patient and express understanding of plan of care. Brick Washer via [employer] used with each visit. Appearance: Pleasant, No Apparent Distress and Alert HEENT: MMM CVS: Other (RRR) Abdomen: Soft, Non-Tender and No Distention Respiratory: Other (+Cough, CTA lisa, nonlabored breathing, speaks full sentences ) Extremities: No Edema Vital Signs: Most Recent Vital Signs Temperature 97.9 F 10/04/24 09:49 Temperature Source Tympanic 10/04/24 09:49 Temperature Source Infrared 10/02/24 22:46 Pulse Rate 82 10/04/24 09:49 Respiratory Rate 17 10/04/24 09:49 Blood Pressure 134/86 10/04/24 09:49 Blood Pressure Mean 102 10/04/24 09:49 Blood Pressure Left Arm 136/84 10/03/24 01:56 Blood Pressure Location Left Arm 10/04/24 09:49 Blood Pressure Position Sitting 10/04/24 09:49 O2 Sat by Pulse Oximetry 99 10/04/24 09:49 Oxygen Delivery Method Room Air 10/04/24 10:56 Oxygen Flow Rate 2 10/02/24 23:47 Height 5 ft 5 in 10/03/24 01:56 Weight 68.2 kg 10/03/24 01:56 Telemetry Type Remote Telemetry 10/04/24 07:00 Telemetry Monitoring Continues 10/04/24 07:00 Telemetry Heart Rate 80 10/04/24 07:00 Telemetry SPO2 98 10/04/24 07:00 EKG [place] Interval 0.15 10/04/24 07:00 EKG QRS Interval 0.08 10/04/24 07:00 Telemetry Strip Reading SR 10/04/24 07:00 Imaging: EXAM: FRONTAL AND LATERAL VIEWS OF THE CHEST. HISTORY: Cough. COMPARISON: Chest radiograph 06/03/2017. FINDINGS: Normal heart size. Subtle groundglass opacities in the left mid to lower lung. No pleural effusion or pneumothorax. No acute osseous abnormality. IMPRESSION: Subtle infiltrates in the left lung concerning for pneumonia. Discharge Instructions Discharge Planning: Discharge Planning > [address] Sonny Frias. Discharge Medications: Medications at Discharge (Home Meds & RX) amoxicillin 500 mg capsule 1,000 mg (2 x 500 mg) PO TID 2 days #12 caps 10/04/24 azithromycin 250 mg tablet 250 mg PO DAILY 2 days #2 tabs 10/04/24 benzonatate 100 mg capsule 100 mg PO TID PRN cough #30 caps 10/04/24 metformin 1,000 mg tablet See Rx Instructions .Route .COMPLEX #30 tabs 10/04/24 Discharge Plan Discharge Discharge Orders: Discharge Patient (ONCE); Ordered 10/04/24 Ordered By: ASHLEE GR Activity Restrictions/Additional Instructions: DISCHARGE TO HOME DX: PNEUMONIA, DIABETES FINISH ANTIBIOTICS F/U WITH PCP DIET: DIABETIC/LOW CARB Instructions: Community Acquired Pneumonia (DC), Diabetes and Nutrition (DC) Patient Disposition: HOME SELF-CARE Prescriptions: New benzonatate 100 mg Capsule 100 mg PO TID PRN (Reason: cough) Qty: 30 0RF azithromycin 250 mg tablet 250 mg PO DAILY 2 Days Qty: 2 0RF Rx Instructions: START 10/05 metformin 1,000 mg tablet See Rx Instructions .ROUTE .COMPLEX Qty: 30 2RF Rx Instructions: Take 1/2 tablet PO daily x1 week, then 1 tablet PO daily x2 weeks, then 1 tablet PO twice daily amoxicillin 500 mg capsule 1,000 mg PO TID 2 Days Qty: 12 0RF Rx Instructions: START 10/05 Discontinued indomethacin 50 mg capsule 50 mg PO TID Qty: 21 0RF Rx Instructions: administer with food or milk metformin 500 mg tablet 1,000 mg PO BID Qty: 60 0RF Rx Instructions: Take 1 tablet in the AM and 2 tablets in the PM everyday for 1 week. Then increase to 2 tablets twice a day. Did you review [place] PRINCIPAL SOFTWARE ARCHITECT for ALL controlled substances?: Not Applicable Discussed opioids are addictive and Narcan is available by prescription or from pharmacy.: No Condition: Stable Referrals: ELIZABETH GODFREY APRN,COOLER DELIVERER-C [NURSE PRACTITIONER] - 10/20/24 4:00 pm
[2024-10-04] MEDS: ROCEPHIN 1 GM/50 ML D5W 1 GM/50 ML BAG IV ONE (12:20)
[2024-10-04] MEDS: ZITHROMAX PO ONE (12:36)
== END 2024-10-04 14:00 | disposition home or self-care (01) ==
LOC: MEDSURG B 22:44 → ED 22:44 → MEDSURG B 10-03 01:56
PROVIDERS: ADMIT Hospitalist; ATTEND Physician Assistant
DX: J18.9 Pneumonia, unspecified organism; R11.2 Nausea with vomiting, unspecified; R06.02 Shortness of breath; E11.65 Type 2 diabetes mellitus with hyperglycemia; Z20.822 Contact with and (suspected) exposure to COVID-19; Z91.190 Patient's noncompliance with other medical treatment and regimen due to financial hardship